=== PATIENT | female | born 1935 | race Hispanic/Latino ===

== ENCOUNTER 2019-02-07 05:52 | Observation (INO) | payer MEDICARE, MEDICAID ==
[2019-02-05 10:58] LABS: BASOPHILS % (AUTO) 0.5 % (0.0-5.0); EOSINOPHILS % (AUTO) 2.2 % (0.0-8.0); HEMATOCRIT 37.7 % (36-48); LYMPHOCYTES % (AUTO) 23.8 % (21.0-51.0); MEAN CORPUSCULAR HEMOGLOBIN 31.8 pg (27.0-33.0); MEAN CORPUSCULAR HGB CONC 33.3 g/dL (32.0-36.0); MEAN CORPUSCULAR VOLUME 95.5 fL (79-99); MONOCYTES % (AUTO) 9.3 % (3.0-13.0); NEUTROPHILS % (AUTO) 64.2 % (40.0-77.0); PLATELET COUNT (AUTO) 155 K/uL (130-400); RED BLOOD CELL COUNT(AUTO) 3.95 MIL/uL (4.00-5.50); RED CELL DISTRIBUTION WIDTH 14.1 % (11.0-15.5); WHITE BLOOD COUNT (AUTO) 5.2 K/uL (4.8-10.8)
[2019-02-05 11:08] LABS: CREATININE 0.9 mg/dL (0.5-1.5); POTASSIUM 4.7 mmol/L (3.5-5.1)
[2019-02-05 11:15] VITALS: BP 145/65
[2019-02-05 11:29] LABS: INR 1.04 (0.85-1.15); PARTIAL THROMBOPLASTIN TIME 26.4 SEC (26.3-35.5); PROTHROMBIN TIME 10.9 SEC (9.6-11.6)
[2019-02-07] VITALS (9 sets, daily range): BP systolic 116–142; BP diastolic 56–107
[~2019-02-07] VITALS: Ht 156.2 cm; Wt 87.7 kg
[~2019-02-07 05:52] MED LIST: APIX5TAB PO; BETA1TAB18 PO; CALC-1009 PO; DICL75TA5 PO; ERGO500014 PO; FURO20TA4 PO; LOSA25TA41 PO; METO-408 PO; POTASSIUM PO; SODIUM CHLORIDE 0.9% 1000ML 1,000 ML IV SCH; [UNRECOGNIZED DRUG - OTHER] PO
[2019-02-07] MEDS ORDERED: CEFAZOLIN SODIUM 1 GM VIAL IVP SCH (06:00)
[2019-02-07] MEDS ORDERED: BUPIVACAINE/PF 0.25% 30ML VIAL IJ ONE (09:30)
[2019-02-07] MEDS ORDERED: LIDOCAINE HCL 1% MDV 50ML VIAL ONE (09:32)
[2019-02-07] MEDS ORDERED: CEFAZOLIN SODIUM 1 GM VIAL ONE (09:32)
[2019-02-07] MEDS ORDERED: IODIXANOL 320 MG/ML 100 ML VIAL ONE (09:43)
[2019-02-07] MEDS ORDERED: MEPERIDINE-PF 25 MG/ML SYG ONE ×2 (09:44→09:53)
[2019-02-07] MEDS ORDERED: MIDAZOLAM HCL 1 MG/ML 2ML VIAL ONE ×2 (09:44→09:53)
[2019-02-07] MEDS ORDERED: ACETAMINOPHEN-CODEINE 300/30MG TAB PO PRN (12:30)
[2019-02-07] MEDS ORDERED: ACETAMINOPHEN EXTRA STRENGTH 500 MG TABLET PO PRN (12:30)
--- NOTE | 2019-02-07 13:00 | NUR ---
ARRIVAL TO FLOOR ROOM 229 PT IS AAO4 DENIES CP DENIES SOB DENIES NV NO COMPLAINTS. LEFT ARM SLING IN PLACE, LEFT UPPER CHEST DRESSING CLEAN DRY AND INTACT. ARRIVED WITH ORDERS, PLACED ON TELE. HR VIA TELE AVPACED 60S. FAMILY IS AT BEDSIDE.
--- NOTE | 2019-02-07 14:00 | NUR ---
Status Patient is sitting up in bed, left arm remains in sling. Dressing to left upper chest remains clean dry and intact, no bruising or hematoma noted. Denies pain at this time, family is at bedside, light within reach.
--- NOTE | 2019-02-07 15:00 | NUR ---
Status Left upper chest dressing remains clean dry and intact, no complaints of pain from patient. Call light within reach.
--- NOTE | 2019-02-07 15:19 | NUR ---
DR MANSFIELD HOSPITALIST MADE AWARE OF PATIENTS ADMISSION
[2019-02-07] MEDS: METOPROLOL TARTRATE 25 MG TAB PO SCH (20:47)
--- NOTE | 2019-02-08 | NUR ---
PT HAS BEEN STABLE. ABLE TO AMBULATE. LEFT SLING IN PLACE. STATES NO PAIN. MINIMAL SORENESS. ABLE TO TAKE MEDICATIONS DIRECTED. PRESSURE DRESSING IN PLACE. KYRGYZ SPEAKING. NO DISTRESS NOTED.
[2019-02-08 04:10] VITALS: BP 127/65
--- NOTE | 2019-02-08 07:45 | NUR ---
ASSESSMENT ENCOUNTERED PT A&OX3, CALM COOPERATIVE AND DOES NOT APPEAR TO BE IN ANY DISTRESS NOR ANY NEURO DEFICITS PRESENT. PT DENIES PAIN, SOB, NAUSEA. LEFT SHOULDER DRESSING DRY, INTACT AND SECURED WITH ARM SLING. PT IS AMBULATORY, GAIT STEADY AND STRONG WITH STAND BY ASSIST. CALL LIGHT WITHIN REACH, FAMILY AT BEDSIDE.
[2019-02-08 07:56] VITALS: BP 152/57
[2019-02-08] MEDS: METOPROLOL TARTRATE 25 MG TAB PO SCH (08:17)
[2019-02-08] MEDS ORDERED: FUROSEMIDE 20 MG TABLET PO SCH (09:00)
[2019-02-08] MEDS ORDERED: **HM** DICLOFENAC 75MG PO PRN (09:00)
[2019-02-08] MEDS ORDERED: LOSARTAN 50 MG TABLET PO SCH (09:00)
[2019-02-08] MEDS ORDERED: METOPROLOL TARTRATE 25 MG TAB PO SCH (09:00)
--- NOTE | 2019-02-08 13:00 | NUR ---
DISCHARGE INSTRUCTIONS GIVEN, PIV REMOVED AND INTACT, DISCHARGED HOME TO FAMILY VEHICLE VIA WHEELCHAIR.
== END 2019-02-08 12:42 | disposition home or self-care (01) ==
LOC: DAH 05:52 → DAHIP 05:53 → DAH 05:53 → 2AH 12:59
PROVIDERS: ADMIT Internal Medicine; ATTEND Internal Medicine
DX: I11.0 Hypertensive heart disease with heart failure (principal); I50.42 Chronic combined systolic (congestive) and diastolic (congestive) heart failure; I45.89 Other specified conduction disorders; E78.5 Hyperlipidemia, unspecified; I44.2 Atrioventricular block, complete; I48.91 Unspecified atrial fibrillation; Z79.899 Other long term (current) drug therapy
CPT/HCPCS: 33225; 33233; 33249; 36415; 71045; 80048; 85025; 85610; 85730; A4606; C1769 ×3; C1882; C1895; C1900; G0378 ×31; J0690; J2175 ×2; J2250 ×2; J3490 ×2; J7030; Q9967; 99156; 99157